=== PATIENT | female | born 1945 | race Caucasian/White ===

== ENCOUNTER → 2020-10-04 13:48 | Outpatient (CLI) | payer MEDICARE, SELFPAY ==
[2020-10-04 14:38] LABS: COVID19 -Nasal RAPID Negative (Negative)
== END ==
PROVIDERS: Visit Provider Family Medicine Sleep Medicine
DX: Z20.828 Contact with and (suspected) exposure to other viral communicable diseases (principal); G47.30 Sleep apnea, unspecified; G47.19 Other hypersomnia; G47.00 Insomnia, unspecified; Z87.898 Personal history of other specified conditions
CPT/HCPCS: 87635; 99214

== ENCOUNTER → 2020-10-25 10:44 | Outpatient (CLI) | payer MEDICARE, SELFPAY ==
--- NOTE | 2020-10-25 10:53 | DI.RAD.S_ITS ---
PROCEDURE: XR HAND RT MIN 3V INDICATIONS: RHEUMATOID ARTHRITIS, MULTIPLE JOINT PAIN TECHNIQUE: 3 views of the hand(s) acquired. COMPARISON: None. FINDINGS: Bones: No fractures or dislocations. Carpal bones are normally aligned. No suspicious bony lesions. There is joint space narrowing at the triscaphe joint, 1st carpometacarpal joint, and multiple interphalangeal joints. Mild periarticular erosion is present. The findings are consistent with inflammatory arthritis such as rheumatoid arthritis. Soft tissues: No suspicious soft tissue calcifications. IMPRESSION: Rheumatoid arthritis of the right hand, most severe at the triscaphe joint and the 1st carpometacarpal joint. Dictated by: Husam Oropeza M.D. on 10/25/2020 at 12:51 Approved by: Husam Oropeza M.D. on 10/25/2020 at 12:52
--- NOTE | 2020-10-25 10:53 | DI.RAD.S_ITS ---
PROCEDURE: XR HAND LT MIN 3V INDICATIONS: RHEUMATOID ARTHRITIS, MULTIPLE JOINT PAIN TECHNIQUE: 3 views of the hand(s) acquired. COMPARISON: None. FINDINGS: Bones: No fractures or dislocations. Carpal bones are normally aligned. No suspicious bony lesions. There is joint space narrowing and periarticular erosion at the 1st carpometacarpal joint and multiple interphalangeal joints. Soft tissues: No suspicious soft tissue calcifications. IMPRESSION: Joint space narrowing and periarticular erosion consistent with rheumatoid arthritis. Dictated by: Husam Oropeza M.D. on 10/25/2020 at 12:49 Approved by: Husam Oropeza M.D. on 10/25/2020 at 12:50
--- NOTE | 2020-10-25 10:53 | DI.RAD.S_ITS ---
PROCEDURE: XR KNEE RT 3V INDICATIONS: RHEUMATOID ARTHRITIS, MULTIPLE JOINT PAIN TECHNIQUE: 3 views of the knee were acquired. COMPARISON: None. FINDINGS: Bones: Total knee arthroplasty with intact hardware. No fractures or dislocations. No suspicious bony lesions. Soft tissues: Small joint effusion. No suspicious soft tissue calcifications. IMPRESSION: 1. Total knee arthroplasty with intact hardware. 2. Small knee joint effusion. Dictated by: Husam Oropeza M.D. on 10/25/2020 at 13:08 Approved by: Husam Oropeza M.D. on 10/25/2020 at 13:08
--- NOTE | 2020-10-25 10:53 | DI.RAD.S_ITS ---
PROCEDURE: XR LUMBAR SPINE 2-3V INDICATIONS: RHEUMATOID ARTHRITIS, MULTIPLE JOINT PAIN TECHNIQUE: 2 views of the lumbar spine were acquired. COMPARISON: None. FINDINGS: Bones: Possible transitional anatomy with 6 vxd-gbm-rnxcgxp vertebrae. The 1st non rib-bearing lumbar vertebra is presumedly the transitional T12 for the report of this exam. There is mild with rotatory scoliosis but normal bony alignment. No vertebral body compression fractures. No suspicious bony lesions. There is iygmdzfr-ot-xdhyhf degenerative disc disease at L1-L2, L3-L4 and L5-S1, moderate degenerative disc disease at other levels. Rlbjkbtl-sh-bauauf facet arthropathy throughout the lumbar spine. Soft tissues: Overlying bowel gas pattern is normal. No suspicious soft tissue calcifications. IMPRESSION: 1. 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 2. Ibegzmya-ly-kwpxrn degenerative disc and facet disease. Dictated by: Husam Oropeza M.D. on 10/25/2020 at 13:24 Approved by: Husam Oropeza M.D. on 10/25/2020 at 13:56
--- NOTE | 2020-10-25 10:53 | DI.RAD.S_ITS ---
PROCEDURE: XR KNEE LT 3V INDICATIONS: RHEUMATOID ARTHRITIS, MULTIPLE JOINT PAIN TECHNIQUE: 3 views of the knee were acquired. COMPARISON: None. FINDINGS: Bones: No fractures or dislocations. No suspicious bony lesions. Moderate knee joint degeneration with joint space narrowing, subchondral sclerosis and periarticular osteophytes. Soft tissues: No joint effusion. No suspicious soft tissue calcifications. IMPRESSION: Moderate knee joint degeneration. Dictated by: Husam Oropeza M.D. on 10/25/2020 at 13:04 Approved by: Husam Oropeza M.D. on 10/25/2020 at 13:07
--- NOTE | 2020-10-25 10:53 | DI.RAD.S_ITS ---
PROCEDURE: XR SHOULDER LT MIN 2V INDICATIONS: RHEUMATOID ARTHRITIS, MULTIPLE JOINT PAIN TECHNIQUE: 3 views of the shoulder were acquired. COMPARISON: [facility], CR, XR SHOULDER RT MIN 2V, 10/25/2020, 11:03. FINDINGS: Bones: Old clavicular shaft fractures with superior displacement of the proximal fracture fragment and overriding fracture fragments. No acute fractures or dislocations. No suspicious bony lesions. Moderate glenohumeral joint degeneration. No definitive bony erosions. Visualized ribs appear intact. Soft tissues: No suspicious soft tissue calcifications. IMPRESSION: 1. Old right clavicular shaft fracture. 2. Moderate glenohumeral joint degeneration. Dictated by: Husam Oropeza M.D. on 10/25/2020 at 13:57 Approved by: Husam Oropeza M.D. on 10/25/2020 at 13:58
--- NOTE | 2020-10-25 10:53 | DI.RAD.S_ITS ---
PROCEDURE: XR SHOULDER RT MIN 2V INDICATIONS: RHEUMATOID ARTHRITIS, MULTIPLE JOINT PAIN TECHNIQUE: 3 views of the shoulder were acquired. COMPARISON: None. FINDINGS: Bones: No fractures or dislocations. No suspicious bony lesions. There is a osseous density in the superior glenohumeral joint, suggesting an intra-articular body. Superior glenoid appears irregular. There is moderate glenohumeral joint degeneration and mild acromioclavicular joint degeneration. Visualized ribs appear intact. Soft tissues: No suspicious soft tissue calcifications. Interstitial prominence in visualized right lung. IMPRESSION: 1. Moderate glenohumeral joint degeneration. A intra-articular body may be present in the superior aspect of the glenohumeral joint. The superior glenoid is irregular. If clinical symptoms persist or clinical suspicion for internal derangement is high, MRI is suggested for further evaluation. 2. Mild acromioclavicular joint degeneration. 3. 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 Dictated by: Husam Oropeza M.D. on 10/25/2020 at 17:12 Approved by: Husam Oropeza M.D. on 10/25/2020 at 17:15
[2020-10-25 12:47] LABS: Add Manual Diff / Slide Review NO; Basophils Absolute Auto 100 /uL (0-100); Basophils Percent Auto 1.2 % (0-2); Eosinophils Absolute Auto 200 /uL (0-450); Eosinophils Percent Auto 3.1 % (2-4); Hematocrit 44.2 % (36-46); Hemoglobin 14.9 g/dL (12.0-16.0); Lymphocytes Absolute Auto 1300 /uL (1100-4500); Lymphocytes Percent Auto 20.7 % (25-40); Mean Corpuscular HGB Conc 33.8 % (30-36); Mean Corpuscular Hemoglobin 32.6 PG (26-34); Mean Corpuscular Volume 96.5 fL (80-100); Monocytes Absolute Auto 500 /uL (0-900); Monocytes Percent Auto 8.2 % (3-14); Neutrophils Absolute Auto 4300 /uL (1500-7000); Neutrophils Percent Auto 66.8 % (50-75); Platelet Count 244 X10^3/uL (150-400); Red Blood Cell Count 4.58 X10^6/uL (4.0-5.2); Red Cell Distribution Width 14.2 % (11.6-14.8); White Blood Cell Count 6.5 X10^3/uL (4.5-11.0)
[2020-10-25 12:48] LABS: Alanine Aminotransferase 28 IU/L (<35); Albumin 4.3 g/dL (3.5-5.0); Albumin Globulin Ratio 1.3 (1.0-2.8); Alkaline Phosphatase 79 U/L (38-126); Aspartate Aminotransferase 39 IU/L (14-36); BUN Creatinine Ratio 23.8 (6-22); Bilirubin Total 0.5 mg/dL (0.2-1.3); Blood Urea Nitrogen 19 mg/dL (7-17); Calcium 9.8 mg/dL (8.4-10.2); Carbon Dioxide 31 mmol/L (22-32); Chloride 103 mmol/L (98-107); Estimated Glomerular Filt Rate > 60.0 mL/min (>60); Globulin 3.2 g/dL (1.7-4.1); Glucose 111 mg/dL (80-110); HEMOLYSIS < 15 (0-50); Potassium 4.2 mmol/L (3.4-5.1); Sodium 137 mmol/L (137-145); Total Protein 7.5 g/dL (6.3-8.2)
[2020-10-25 12:49] LABS: C-Reactive Protein Quant < 0.5 mg/dL (<1.0)
[2020-10-25 13:20] LABS: Erythrocyte Sedimentation Rate 4 MM/HR (0-20)
== END ==
PROVIDERS: PCP Family Medicine; Referring Provider Internal Medicine Rheumatology; Visit Provider Internal Medicine Rheumatology
DX: M06.09 Rheumatoid arthritis without rheumatoid factor, multiple sites (principal); M25.59 Pain in other specified joint; M17.12 Unilateral primary osteoarthritis, left knee; M25.461 Effusion, right knee; M51.36 Other intervertebral disc degeneration, lumbar region; M51.37 Other intervertebral disc degeneration, lumbosacral region; M19.011 Primary osteoarthritis, right shoulder; M19.012 Primary osteoarthritis, left shoulder; Z96.651 Presence of right artificial knee joint; Z79.899 Other long term (current) drug therapy
CPT/HCPCS: 36415; 72100; 73030; 73130; 73562; 80053; 85025; 85651; 86140

== ENCOUNTER → 2021-02-01 13:39 | Outpatient (CLI) | payer MEDICARE, SELFPAY ==
[2021-02-01 21:05] LABS: Add Manual Diff / Slide Review NO; Basophils Absolute Auto 100 /uL (0-100); Basophils Percent Auto 1.2 % (0-2); Eosinophils Absolute Auto 400 /uL (0-450); Eosinophils Percent Auto 8.3 % (2-4); Hematocrit 41.9 % (36-46); Hemoglobin 14.1 g/dL (12.0-16.0); Lymphocytes Absolute Auto 1600 /uL (1100-4500); Lymphocytes Percent Auto 29.9 % (25-40); Mean Corpuscular HGB Conc 33.6 % (30-36); Mean Corpuscular Hemoglobin 32.4 PG (26-34); Mean Corpuscular Volume 96.5 fL (80-100); Monocytes Absolute Auto 700 /uL (0-900); Monocytes Percent Auto 12.7 % (3-14); Neutrophils Absolute Auto 2500 /uL (1500-7000); Neutrophils Percent Auto 47.9 % (50-75); Platelet Count 231 X10^3/uL (150-400); Red Blood Cell Count 4.34 X10^6/uL (4.0-5.2); Red Cell Distribution Width 14.2 % (11.6-14.8); White Blood Cell Count 5.2 X10^3/uL (4.5-11.0)
[2021-02-01 21:31] LABS: Erythrocyte Sedimentation Rate 7 MM/HR (0-20)
[2021-02-02 03:25] LABS: Alanine Aminotransferase 28 IU/L (<35); Albumin Globulin Ratio 1.5 (1.0-2.8); Alkaline Phosphatase 90 U/L (38-126); Aspartate Aminotransferase 36 IU/L (14-36); Bilirubin Total 0.2 mg/dL (0.2-1.3); Blood Urea Nitrogen 17 mg/dL (7-17); C-Reactive Protein Quant < 0.5 mg/dL (<1.0); Carbon Dioxide 28 mmol/L (22-32); Chloride 104 mmol/L (98-107); Estimated Glomerular Filt Rate > 60.0 mL/min (>60); Globulin 2.7 g/dL (1.7-4.1); Glucose 95 mg/dL (80-110); HEMOLYSIS < 15 (0-50); Potassium 4.4 mmol/L (3.4-5.1); Sodium 138 mmol/L (137-145); Total Protein 6.7 g/dL (6.3-8.2)
== END ==
PROVIDERS: PCP Family Medicine; Visit Provider Internal Medicine Rheumatology
DX: S22.39XA Fracture of one rib, unspecified side, initial encounter for closed fracture (principal); M06.09 Rheumatoid arthritis without rheumatoid factor, multiple sites
CPT/HCPCS: 80053; 85025; 85651; 86140